=== PATIENT | female | born 1970 | race Caucasian/White ===

== ENCOUNTER → 2022-03-06 | Outpatient (CLI) | payer OTHER ==
[2022-03-06 17:36] LABS: HEMOGLOBIN 12.6 gm/dl (12.3-15.3); RED BLOOD COUNT 4.33 M/UL (4.00-5.10); WHITE BLOOD COUNT 5.3 K/UL (4.5-11.0)
[2022-03-06 18:04] LABS: BUN/CREATININE RATIO 19 (0-10)
[2022-03-08 22:07] LABS: THYROGLOBULIN ANTIBODY 1.8 IU/mL (0.0-0.9)
== END ==
LOC: RAD 17:00
PROVIDERS: Family Medicine
DX: R09.02 Hypoxemia (principal); M54.50 Low back pain, unspecified; Z79.899 Other long term (current) drug therapy; R00.0 Tachycardia, unspecified; M51.34 Other intervertebral disc degeneration, thoracic region; M51.36 Other intervertebral disc degeneration, lumbar region
CPT/HCPCS: 36415; 71046; 72072; 72100; 80053; 82607; 82728; 83036; 83540; 83550; 84439; 84443; 85025; 86376; 86800